=== PATIENT | female | born 1980 | race Caucasian/White ===

== ENCOUNTER 2017-07-12 15:15 | Outpatient (CLI) | payer MEDICAID | END 2017-07-12 15:16 | disposition critical access hospital (66) | LOC: EMS 15:15 | PROVIDERS: ATTEND Surgery | DX: R56.9 Unspecified convulsions (principal) | CPT/HCPCS: A0425; A0429 ==

== ENCOUNTER 2017-07-12 15:33 | Emergency (ER) | payer MEDICAID ==
[2017-07-12 15:38] VITALS: BP 121/74
--- NOTE | 2017-07-12 15:43 | ED Physician Documentation ---
PD HPI SEIZURE - Stated complaint Stated Complaint: SEIZURES - Chief complaint Chief Complaint: Neuro - History obtained from History obtained from: Patient, EMS - History of Present Illness Timing - onset: Other (36-year-old woman new to the area. She says she has almost daily seizures, in 2005 she had an EEG workup per her at [facility] diagnosing non-epileptiform events. She does have bipolar disorder and is maintained on Lamictal. Today she had 1 of her typical seizures although this was poorly described to me and it is unclear if she had any sort of postictal period. 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 She was advised to follow-up with a neurologist since it has been sometime since she has seen one, but given the likelihood of nonepileptic events and the recurrent nature no further workup is necessary today. Departure - Departure Disposition: 01 Home, Self Care Clinical Impression: Psychogenic nonepileptic seizure Condition: Good Record reviewed to determine appropriate education?: Yes Comments: As discussed, based on your description and prior testing, you have nonepileptic seizures. I recommend following up with primary care in a neurologist. Return if worse. Continue to not drive until advised it is safe to do so by a neurologist. Discharge Date/Time: 07/12/17 15:55
== END 2017-07-12 15:55 | disposition home or self-care (01) ==
LOC: ED 15:33
DX: R56.9 Unspecified convulsions (principal)
CPT/HCPCS: 99283

== ENCOUNTER 2017-08-07 20:20 | Outpatient (CLI) | payer MEDICAID | END 2017-08-07 20:21 | disposition critical access hospital (66) | LOC: EMS 20:20 | PROVIDERS: ATTEND Surgery | DX: R56.9 Unspecified convulsions (principal) | CPT/HCPCS: A0425; A0429 ==

== ENCOUNTER 2017-08-07 20:38 | Emergency (ER) | payer MEDICAID ==
--- NOTE | 2017-08-08 00:26 | ED Physician Documentation ---
History of Present Illness - Stated complaint Stated Complaint: SZ - Chief complaint Chief Complaint: Neuro - History obtained from History obtained from: Patient - History of Present Illness Timing: Enter time (21:00), Today Pain level now: 0 - Additonal information Additional information: patient and patients friend describe seizure like activity occurred at approximately 9 PM tonight while patient was sitting playing cards. Patient does not recall event. Patients friend describes head rocking back and forth and eyes rolled back. Event lasted two or three minutes. There is no description consistent with a post ictal state. patient reportedly had immediate turn to baseline level of consciousness, and presents to the emergency department asymptomatic. Patient says she has had similar episodes in the past, and was told by a neurologist that these were nonepilleptiform events. she is not on any medications for seizures; her Lamictall is for treatment of bipolar. Review of Systems Constitutional: reports: Reviewed and negative Eyes: reports: Reviewed and negative Cardiac: reports: Reviewed and negative Respiratory: reports: Reviewed and negative GI: reports: Reviewed and negative : denies: Incontinent Neurologic: reports: Seizure (seizure-like activity), Unresponsive (during the event). 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 : None HEENT: None Psych: Bipolar disorder Musculoskeletal: None Derm: None - Past Surgical History Past Surgical History: Yes /ASPHALT SPREADER OPERATOR: section, Tubal ligation - Present Medications Home Medications: Ambulatory Orders Medication Instructions Recorded Confirmed Fluticasone [Flonase] 1 sprays TRISTON DAILY 08/07/17 08/07/17 Lamotrigine [Lamictal] 200 mg PO BID 08/07/17 08/07/17 Loratadine [Claritin] 10 mg PO DAILY 08/07/17 08/07/17 - Allergies Allergies/Adverse Reactions: Allergies Allergy/AdvReac Type Severity Reaction Status Date / Time Sulfa (Sulfonamide Allergy Hives Verified 08/07/17 20:57 Antibiotics) diazepam [From Valium] AdvReac Nausea Verified 08/07/17 20:57 - Social History Does the pt smoke?: No Smoking Status: Never smoker Does the pt drink ETOH?: No Does the pt have substance abuse?: No - Immunizations Immunizations are current?: Yes PD ED PE NORMAL - Vitals Vital signs reviewed: Yes - General General: Alert and oriented X 3, No acute distress, Well developed/nourished - HEENT HEENT: PERRL, EOMI, Pharynx benign (no tongue bite/echymosis) - Neck Neck: Supple, no meningeal sign - Cardiac Cardiac: RRR, No murmur - Respiratory Respiratory: No respiratory distress, Clear bilaterally - Abdomen Abdomen: Soft, Non tender - Derm Derm: Normal color, Warm and dry - Extremities Extremities: No edema - Neuro Neuro: Alert and oriented X 3, 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 she has an appointment at the end of this month to establish with local primary care physician, and to obtain referral to a new neurologist. Departure - Departure Disposition: 01 Home, Self Care Clinical Impression: Psychogenic nonepileptic seizure Condition: Good Instructions: ED Fainting Unkn Cause Comments: Follow up with your doctor at the end of the month as scheduled. Discharge Date/Time: 08/08/17 00:50
[2017-08-08 00:46] VITALS: BP 121/70
== END 2017-08-08 00:50 | disposition home or self-care (01) ==
LOC: EDUNIT# → ED 20:38
DX: G40.89 Other seizures (principal)
CPT/HCPCS: 99283; 99284

== ENCOUNTER 2018-01-19 08:00 | Outpatient (CLI) | payer MEDICAID ==
[2018-01-19 12:44] LABS: CORTISOL 7.2 ug/dL
[2018-01-19 12:48] LABS: THYROID STIMULATING HORMONE 1.88 uIU/mL (0.34-5.60)
== END 2018-01-19 08:01 | disposition home or self-care (01) ==
LOC: LAB.N 08:00
PROVIDERS: ATTEND Nurse Practitioner Gerontology
DX: R63.5 Abnormal weight gain (principal)
CPT/HCPCS: 36415; 82533; 84443

== ENCOUNTER 2018-02-14 08:59 | Outpatient (CLI) | payer MEDICAID ==
[2018-02-14 14:02] LABS: ALBUMIN 3.8 g/dL (3.2-5.5); ALBUMIN/GLOBULIN RATIO 1.4 (1.0-2.2); ALKALINE PHOSPHATASE 79 IU/L (42-121); ALT ALANINE AMINOTRANSFERASE 18 IU/L (10-60); AST ASPARTATE AMINOTRANSFERASE 21 IU/L (10-42); BILIRUBIN,TOTAL 0.2 mg/dL (0.2-1.0); BUN - BLOOD UREA NITROGEN 16 mg/dL (6-20); CALCIUM 8.8 mg/dL (8.5-10.3); CARBON DIOXIDE - CO2 24 mmol/L (21-32); CHLORIDE 106 mmol/L (101-111); CHOL/HDL RATIO 2.3 (<4.4); CHOLESTEROL 126 mg/dL; CREATININE 0.6 mg/dL (0.4-1.0); GFR - MDRD 112 (>89); GLUCOSE 99 mg/dL (70-100); HDL CHOLESTEROL 54 mg/dL; LDL CHOLESTEROL,CALCULATED 59 mg/dL; LDL/HDL RATIO 1.1 (<4.4); SODIUM 137 mmol/L (135-145); TOTAL PROTEIN 6.5 g/dL (6.7-8.2); VLDL CHOLESTEROL 13 mg/dL
[2018-02-14 14:03] LABS: CRP - C-REACTIVE PROTEIN < 1.0 mg/dL (0-1.0)
[2018-02-14 14:08] LABS: BASOPHILS % (AUTO) 0.5 %; EOSINOPHILS # (AUTO) 0.3 10^3/uL (0.0-0.7); EOSINOPHILS % (AUTO) 6.3 %; HGB - HEMOGLOBIN 10.8 g/dL (12.0-16.0); LYMPHOCYTES # (AUTO) 1.2 10^3/uL (1.5-3.5); LYMPHOCYTES % (AUTO) 23.3 %; MEAN CORPUSCULAR HEMOGLOBIN 22.1 pg (27.0-31.0); MEAN CORPUSCULAR HGB CONC 31.6 g/dL (32.0-36.0); MEAN CORPUSCULAR VOLUME 69.9 fL (81.0-99.0); MEAN PLATELET VOLUME 7.6 fL (7.9-10.8); MONOCYTES # (AUTO) 0.3 10^3/uL (0.0-1.0); MONOCYTES % (AUTO) 5.7 %; NEUTROPHILS # (AUTO) 3.3 10^3/uL (1.5-6.6); NEUTROPHILS % (AUTO) 64.2 %; PLT - PLATELET COUNT 280 10^3/uL (130-450); RED BLOOD COUNT 4.86 10^6/uL (4.20-5.40); WHITE BLOOD COUNT 5.1 x10^3/uL (4.8-10.8)
[2018-02-14 14:50] LABS: PLATELET ESTIMATE, MANUAL NORMAL (130-450,000) (NORMAL); PLATELET MORPHOLOGY NORMAL APPEARANCE (NORMAL)
[2018-02-14 16:18] LABS: RHEUMATOID FACTOR NEGATIVE (Negative)
[2018-02-16 12:16] LABS: ANA SCREEN NEGATIVE (NEGATIVE)
== END 2018-02-14 09:00 | disposition home or self-care (01) ==
LOC: LAB.N 08:59
PROVIDERS: ATTEND Nurse Practitioner Gerontology
DX: Z13.9 Encounter for screening, unspecified (principal); R63.5 Abnormal weight gain
CPT/HCPCS: 36415; 80053; 80061; 83721; 85025; 85651; 86038; 86140; 86430

== ENCOUNTER 2019-06-10 10:59 | Outpatient (CLI) | payer MEDICAID ==
--- NOTE | 2019-06-10 17:08 | Mammography Report ---
Reason: BREAST PAIN, RIGHT, BREAST LUMP Procedure Date: 06/10/2019 Accession Number: [id number] / [id number] Procedure: VIANCA - Diagnostic Dig Bilat CPT Code: FULL RESULT: EXAM: Diagnostic Dig Bilat DATE: 06/10/2019 12:52 PM CLINICAL HISTORY: Breast pain, right breast lump. TECHNIQUE: (B) - Bilateral CC and MLO views were obtained. COMPARISON: None PARENCHYMAL PATTERN: (F) - The breast(s) demonstrate(s) diffuse fatty replacement. FINDINGS: There are no suspicious masses, calcifications, or areas of distortion. IMPRESSION: Negative examination. BI-RADS category 1. RECOMMENDATION: (ANNUAL) - Recommend routine annual screening mammography. BI-RADS CATEGORY: (1) - Negative. STANDARD QUALIFYING STATEMENTS: 1. This examination was not reviewed with the aid of Computer-Aided Detection (CAD). 2. A negative or benign imaging report should not preclude biopsy if clinically suspicious findings are present. 3. Dense breasts may obscure an underlying neoplasm. 4. This examination was reviewed without the aid of 3D breast imaging (tomosynthesis).
== END 2019-06-10 11:00 | disposition home or self-care (01) ==
LOC: DI 10:59
PROVIDERS: ATTEND Nurse Practitioner Gerontology
DX: N64.4 Mastodynia (principal); N63.10 Unspecified lump in the right breast, unspecified quadrant
CPT/HCPCS: 77066

== ENCOUNTER 2020-04-23 16:44 | Outpatient (CLI) | payer MEDICAID | END 2020-04-23 16:45 | disposition critical access hospital (66) | LOC: EMS 16:44 | PROVIDERS: ATTEND Surgery | DX: R07.9 Chest pain, unspecified (principal); R11.0 Nausea | CPT/HCPCS: A0425; A0427; A0999 ==

== ENCOUNTER 2020-04-23 17:00 | Emergency (ER) | payer MEDICAID ==
[2020-04-23 17:35] LABS: BASOPHILS % (AUTO) 0.3 %; EOSINOPHILS # (AUTO) 0.4 10^3/uL (0.0-0.7); EOSINOPHILS % (AUTO) 5.5 %; HGB - HEMOGLOBIN 11.5 g/dL (12.0-16.0); LYMPHOCYTES # (AUTO) 1.4 10^3/uL (1.5-3.5); LYMPHOCYTES % (AUTO) 20.3 %; MEAN CORPUSCULAR HEMOGLOBIN 21.8 pg (27.0-31.0); MEAN CORPUSCULAR HGB CONC 30.6 g/dL (32.0-36.0); MEAN CORPUSCULAR VOLUME 71.2 fL (81.0-99.0); MEAN PLATELET VOLUME 9.7 fL (7.9-10.8); MONOCYTES # (AUTO) 0.5 10^3/uL (0.0-1.0); MONOCYTES % (AUTO) 7.5 %; NEUTROPHILS # (AUTO) 4.7 10^3/uL (1.5-6.6); NEUTROPHILS % (AUTO) 66.3 %; PLT - PLATELET COUNT 146 10^3/uL (130-450); RED BLOOD COUNT 5.28 10^6/uL (4.20-5.40); RED CELL DISTRIBUTION WIDTH 14.3 % (12.0-15.0)
--- NOTE | 2020-04-23 17:44 | XRAY Report ---
PROCEDURE: Chest 1 View X-Ray INDICATIONS: Chest pain TECHNIQUE: One view of the chest was acquired. COMPARISON: None FINDINGS: Surgical changes and devices: None. Lungs and pleura: No pleural effusions or pneumothorax. Lungs are clear. Mediastinum: Mediastinal contours appear normal. Heart size is normal. Bones and chest wall: No suspicious bony lesions. Overlying soft tissues appear unremarkable. IMPRESSION: No acute cardiopulmonary pathology. Reviewed by: Georges Cabrera MD on 04/23/2020 5:42 PM PDT Approved by: Georges Cabrera MD on 04/23/2020 5:42 PM PDT Station ID: [id number]
[2020-04-23 17:51] LABS: ALBUMIN 3.5 g/dL (3.2-5.5); ALBUMIN/GLOBULIN RATIO 1.3 (1.0-2.2); BILIRUBIN,TOTAL 0.2 mg/dL (0.2-1.0); CREATININE 1.4 mg/dL (0.4-1.0); TOTAL PROTEIN 6.3 g/dL (6.7-8.2)
--- NOTE | 2020-04-23 17:58 | ED Physician Documentation ---
History of Present Illness - Stated complaint Stated Complaint: CP - Chief complaint Chief Complaint: Cardiac - History obtained from History obtained from: Patient - Additonal information Additional information: Patient comes emergency department complaining of an episode of 8/10 left-sided chest pain and shortness of breath that happened while she was climbing the stairs today. Patient has a history of asthma and has had episodes of shortness of breath with exertion previously. However, she states she has not had chest pain. Patient states that the pain was sharp and radiated down her left arm with some numbness in her hand. She states that it was worse with deep breaths. Patient states it felt like a jolt and made her jump backwards. She states she had a slight bit of nausea which was very short-lived. Patient states that her called EMS and that when EMS got there, the pain was starting to improve a little. Patient states they gave her a spray of nitro and that the patient experienced almost complete resolution of her pain. She states that she still has a little pain when she takes a deep breath and that her shoulder still hurts. This is made worse by her lifting her left arm in abduction of the shoulder. Patient denies cough or fevers. She has no history of diabetes, hypertension, or elevated cholesterol that she knows of. Patient has no family history of coronary artery disease. 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 Patient is otherwise healthy except for seizure disorder. She states she is on medication for this but does not remember which one it is. Review of Systems Ten Systems: 10 systems reviewed and negative Constitutional: reports: Reviewed and negative Eyes: reports: Reviewed and negative Ears: reports: Reviewed and negative Nose: reports: Reviewed and negative Throat: reports: Reviewed and negative Cardiac: reports: Chest pain / pressure Respiratory: reports: Dyspnea GI: reports: Nausea : reports: Reviewed and negative Skin: reports: Reviewed and negative Musculoskeletal: reports: Reviewed and negative Neurologic: reports: Reviewed and negative Psychiatric: reports: Reviewed and negative Endocrine: reports: Reviewed and negative Immunocompromised: reports: Reviewed and negative PD PAST MEDICAL HISTORY - Past Medical History Cardiovascular: None Respiratory: None Endocrine/Autoimmune: None GI: None 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 : None HEENT: None Psych: Bipolar disorder Musculoskeletal: None Derm: None - Past Surgical History Past Surgical History: 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, Tubal ligation - Present Medications Home Medications: Ambulatory Orders Medication Instructions Recorded Confirmed Fluticasone [Flonase] 1 sprays TRISTON DAILY 08/07/17 08/07/17 Loratadine [Claritin] 10 mg PO DAILY 08/07/17 08/07/17 lamoTRIgine [Lamictal] 200 mg PO BID 08/07/17 08/07/17 - Allergies Allergies/Adverse Reactions: Allergies Allergy/AdvReac Type Severity Reaction Status Date / Time Sulfa (Sulfonamide Allergy Hives Verified 04/23/20 17:12 Antibiotics) diazepam [From Valium] AdvReac Nausea Verified 04/23/20 17:12 - Social History Does the pt smoke?: No Smoking Status: Never smoker Does the pt drink ETOH?: No Does the pt have substance abuse?: No - Immunizations Immunizations are current?: Yes PD ED PE NORMAL - Vitals Vital signs reviewed: Yes - General General: Alert and oriented X 3, No acute distress - HEENT HEENT: Atraumatic, PERRL, EOMI, Moist mucous membranes - Neck Neck: Supple, no meningeal sign - Cardiac Cardiac: RRR, No murmur, Strong equal pulses - Respiratory Respiratory: No respiratory distress, Clear bilaterally - Abdomen Abdomen: Soft, Non tender, Non distended - Derm Derm: Normal color, Warm and dry, No rash - Extremities Extremities: No deformity, No edema, No calf tenderness / cord - Neuro Neuro: Alert and oriented X 3, Other (Grossly normal) - Psych Psych: Normal mood, Normal affect Results - Vitals Vitals: Vital Signs - 24 hr 04/23/20 04/23/20 04/23/20 17:00 19:25 19:31 Temperature 36.9 C Heart Rate 88 87 Respiratory 18 18 Rate Blood Pressure 129/93 H 121/81 H O2 Saturation 100 98 Oxygen O2 Source Room air - EKG (time done) 1705 Rate: Rate (enter#) (85) Rhythm: NSR [place]: Normal Intervals: Normal IA QRS: Normal Ischemia: Normal ST segments. No: T wave inversion Compare to prior EKG: Old EKG unavailable Computer interpretation: Agree with computer - Labs Labs: Laboratory Tests 04/23/20 04/23/20 04/23/20 17:29 17:29 17:29 WBC 7.0 RBC 5.28 Hgb 11.5 L Hct 37.6 MCV 71.2 L MCH 21.8 L MCHC 30.6 L RDW 14.3 Plt Count 146 MPV 9.7 Neut # (Auto) 4.7 Lymph # (Auto) 1.4 L [place] # (Auto) 0.5 Eos # (Auto) 0.4 Baso # (Auto) 0.0 Absolute Nucleated RBC 0.00 Nucleated RBC % 0.0 Sodium 140 Potassium 3.8 Chloride 103 Carbon Dioxide 25 Anion Gap 12.0 BUN 13 Creatinine 1.4 H Estimated GFR (MDRD) 42 L Glucose 108 H Calcium 9.0 Total Bilirubin 0.2 AST 38 ALT 36 Alkaline Phosphatase 115 Troponin I High Sens < 2.3 L Total Protein 6.3 L Albumin 3.5 Globulin 2.8 Albumin/Globulin Ratio 1.3 Lipase 45 04/23/20 18:58 WBC RBC Hgb Hct MCV MCH MCHC RDW Plt Count MPV Neut # (Auto) Lymph # (Auto) [place] # (Auto) Eos # (Auto) Baso # (Auto) Absolute Nucleated RBC Nucleated RBC % Sodium Potassium Chloride Carbon Dioxide Anion Gap BUN Creatinine Estimated GFR (MDRD) Glucose Calcium Total Bilirubin AST ALT Alkaline Phosphatase Troponin I High Sens < 2.3 L Total Protein Albumin Globulin Albumin/Globulin Ratio Lipase - Rads (name of study) CXR Radiology: Final report received, EMP read indepedently, See rad report (neg) PD MEDICAL DECISION MAKING - ED course Complexity details: reviewed old records (The patient was worked up with labs, EKG, and chest x-ray, all of which were unremarkable.), reviewed results, re- evaluated patient, considered differential, d/w patient ED course: Repeat troponin was negative. I have d/w pt that her sx sound mostly musculoskeletal, and she is very low-risk for CAD; however, with the NTG helping the pain, it is very important that she follows up very soon with her PCP for a stress test. Pt states she has a PCP, and will follow up. We have discussed home management of the sx, as well as the usual indications for return. Departure - Departure Disposition: 01 Home, Self Care Clinical Impression: Chest pain Qualifiers: Chest pain type: unspecified Qualified Code(s): R07.9 - Chest pain, unspecified Condition: Stable Instructions: ED Chest Pain Atypical Unkn Cause Comments: Your EKG, basic labs, and 2 sets of cardiac labs look good. At this point, it does not appear you have had a heart attack. As we have discussed, you are very low risk for this. However, it is important that you follow-up with your doctor to discuss having a stress test done to be absolutely sure, since you did feel some relief after the nitroglycerin. The pain that you are feeling when you take a deep breath and when you move your shoulder is most likely musculoskeletal in origin. You may take ibuprofen and/or Tylenol for this. If you develop worsening pain, especially with shortness of breath and nausea, you should return to the emergency department for further evaluation. Otherwise, please follow-up with your primary doctor soon as possible. Discharge Date/Time: 04/23/20 19:56
[2020-04-23 19:32] VITALS: BP 121/81
== END 2020-04-23 19:56 | disposition home or self-care (01) ==
LOC: EDUNIT# → ED 17:00
DX: R07.9 Chest pain, unspecified (principal); J45.909 Unspecified asthma, uncomplicated; Z87.891 Personal history of nicotine dependence
CPT/HCPCS: 36415; 71045; 80053; 83690; 84484; 85025; 93005; 99284

== ENCOUNTER 2020-05-20 07:34 | Outpatient (CLI) | payer MEDICAID ==
--- NOTE | 2020-05-20 10:17 | CARDIAC PROCEDURE NOTE ---
DATE OF SERVICE: 05/20/2020 Physician: Tierra Bishop MD, LOCATED WITHIN [facility] INDICATION: Chest pain. CARDIAC RISK FACTORS 1. Obesity. 2. Unknown cholesterol status. 3. Sedentary lifestyle until 2 months ago. DESCRIPTION OF PROCEDURE: After signing informed consent, patient underwent a Can-protocol treadmill stress test. There was no imaging ordered with this test. RESTING HEART RATE: 71. PEAK HEART RATE: 129 (71% predicted maximum heart rate for age). RESTING BLOOD PRESSURE: 138/80. PEAK BLOOD PRESSURE: 180/80. The patient exercised for 3 minutes and 17 seconds, all in stage 1 of a Can- protocol. She achieved a peak heart rate of 129 (71% PMHR) and 4.6 METS. There was early shortness of breath with wheezing audible therefore not put into Stage 2.. The exercise was stopped due to severe shortness of breath, respiratory rate was greater than 30. Oxygen saturation was 95-98% on room air throughout the test. The patient had no chest pain. RESTING EKG: Normal sinus rhythm, within normal limits. EKG AT PEAK: No new ST segment or T-wave changes. SUMMARY 1. Normal resting EKG. 2. Nondiagnostic stress test due to not achieving target heart rate. 3. Poor exercise tolerance. 4. No imaging was ordered with this test. 5. This patient's cardiac risk based on all the above: Low. cc: Siddharth Miguel MD TD: 05/20/2020 10:08 MTDD
== END 2020-05-20 07:35 | disposition home or self-care (01) ==
LOC: DI 07:34
PROVIDERS: ATTEND Family Medicine
DX: R07.9 Chest pain, unspecified (principal); E66.9 Obesity, unspecified; Z72.3 Lack of physical exercise
CPT/HCPCS: 93016; 93017; 93018

== ENCOUNTER 2020-08-25 08:00 | Outpatient (CLI) | payer MEDICAID ==
[2020-08-25 12:44] LABS: BASOPHILS % (AUTO) 0.5 %; EOSINOPHILS # (AUTO) 0.5 10^3/uL (0.0-0.7); EOSINOPHILS % (AUTO) 7.8 %; HGB - HEMOGLOBIN 11.3 g/dL (12.0-16.0); LYMPHOCYTES # (AUTO) 1.6 10^3/uL (1.5-3.5); LYMPHOCYTES % (AUTO) 27.2 %; MEAN CORPUSCULAR HEMOGLOBIN 21.4 pg (27.0-31.0); MEAN CORPUSCULAR VOLUME 71.5 fL (81.0-99.0); MEAN PLATELET VOLUME 10.1 fL (7.9-10.8); MONOCYTES # (AUTO) 0.4 10^3/uL (0.0-1.0); MONOCYTES % (AUTO) 6.8 %; NEUTROPHILS # (AUTO) 3.3 10^3/uL (1.5-6.6); NEUTROPHILS % (AUTO) 57.4 %; PLT - PLATELET COUNT 324 10^3/uL (130-450); RED BLOOD COUNT 5.27 10^6/uL (4.20-5.40); RED CELL DISTRIBUTION WIDTH 14.6 % (12.0-15.0); WHITE BLOOD COUNT 5.7 x10^3/uL (4.8-10.8)
[2020-08-25 13:03] LABS: ALBUMIN 3.3 g/dL (3.2-5.5); ALKALINE PHOSPHATASE 152 IU/L (42-121); ALT ALANINE AMINOTRANSFERASE 39 IU/L (10-60); AST ASPARTATE AMINOTRANSFERASE 33 IU/L (10-42); BILIRUBIN,TOTAL 0.2 mg/dL (0.2-1.0); BUN - BLOOD UREA NITROGEN 10 mg/dL (6-20); CALCIUM 8.6 mg/dL (8.5-10.3); CARBON DIOXIDE - CO2 23 mmol/L (21-32); CHLORIDE 107 mmol/L (101-111); CHOL/HDL RATIO 2.9 (<4.4); CHOLESTEROL 121 mg/dL; CREATININE 0.7 mg/dL (0.4-1.0); GLUCOSE 129 mg/dL (70-100); HDL CHOLESTEROL 42 mg/dL; LDL CHOLESTEROL,CALCULATED 61 mg/dL; LDL/HDL RATIO 1.5 (<4.4); SODIUM 136 mmol/L (135-145); TOTAL PROTEIN 6.6 g/dL (6.7-8.2); VLDL CHOLESTEROL 18 mg/dL
== END 2020-08-25 23:59 | disposition home or self-care (01) ==
LOC: LAB.WCP 08:00
PROVIDERS: ATTEND Family Medicine
DX: Z00.00 Encounter for general adult medical examination without abnormal findings (principal)
CPT/HCPCS: 36415; 80050; 80061; 83721

== ENCOUNTER 2020-09-03 13:56 | Outpatient (CLI) | payer MEDICAID ==
--- NOTE | 2020-09-03 18:38 | Ultrasound Report ---
PROCEDURE: Pelvic w/Transvaginal INDICATIONS: MENORRHAGIA TECHNIQUE: Real-time scanning was performed of the pelvic organs, with image documentation. Additional endovagi nal scanning was necessary due to incomplete visualization of the adnexal and endometrial structures by transabdominal scanning. COMPARISON: None. FINDINGS: Transabdominal scanning: Limited scanning through the kidneys shows no hydronephrosis. No pathologi c free abdominal or pelvic fluid. Endovaginal scanning: Uterus: Uterus is normal in size at 10.0 x 4.1 x 5.0 cm. Mildly heterogeneous uterine echotexture w ithout focal mass or fibroid. The endometrium measures 9 mm in combined thickness. Nabothian cysts a nd microcalcifications noted in the cervix. Ovaries: Right ovary measures 3.0 x 2.3 x 2.9 cm. Less than 12 follicles seen. Incidental 1.4cm jeb nant follicle. No suspicious adnexal/ovarian mass lesions. The left ovary is not visualized. IMPRESSION: Nonvisualization of the left ovary. Otherwise, negative sonographic evaluation of the pelvis. Reviewed by: Sahil Iqbal MD on 09/03/2020 6:37 PM PST Approved by: Sahil Iqbal MD on 09/03/2020 6:37 PM PST Station ID: [id number]
== END 2020-09-03 13:57 | disposition home or self-care (01) ==
LOC: DI 13:56
PROVIDERS: ATTEND Family Medicine
DX: N92.0 Excessive and frequent menstruation with regular cycle (principal)
CPT/HCPCS: 76830; 76856

== ENCOUNTER 2020-10-27 10:30 | Outpatient (CLI) | payer MEDICAID ==
[2020-10-27 18:54] LABS: BASOPHILS % (AUTO) 0.5 %; EOSINOPHILS # (AUTO) 0.5 10^3/uL (0.0-0.7); EOSINOPHILS % (AUTO) 7.5 %; HGB - HEMOGLOBIN 11.6 g/dL (12.0-16.0); LYMPHOCYTES # (AUTO) 1.3 10^3/uL (1.5-3.5); LYMPHOCYTES % (AUTO) 21.5 %; MEAN CORPUSCULAR HEMOGLOBIN 21.1 pg (27.0-31.0); MEAN CORPUSCULAR HGB CONC 29.5 g/dL (32.0-36.0); MEAN CORPUSCULAR VOLUME 71.6 fL (81.0-99.0); MEAN PLATELET VOLUME 9.9 fL (7.9-10.8); MONOCYTES # (AUTO) 0.4 10^3/uL (0.0-1.0); NEUTROPHILS # (AUTO) 3.9 10^3/uL (1.5-6.6); NEUTROPHILS % (AUTO) 64.2 %; PLT - PLATELET COUNT 343 10^3/uL (130-450); RED BLOOD COUNT 5.49 10^6/uL (4.20-5.40); RED CELL DISTRIBUTION WIDTH 14.5 % (12.0-15.0); WHITE BLOOD COUNT 6.1 x10^3/uL (4.8-10.8)
[2020-10-27 19:07] LABS: % IRON SATURATION 21 % (20-50); BUN - BLOOD UREA NITROGEN 12 mg/dL (6-20); CARBON DIOXIDE - CO2 26 mmol/L (21-32); CHLORIDE 104 mmol/L (101-111); CHOL/HDL RATIO 2.4 (<4.4); CHOLESTEROL 128 mg/dL; CREATININE 0.8 mg/dL (0.4-1.0); GLUCOSE 117 mg/dL (70-100); HDL CHOLESTEROL 53 mg/dL; IRON 66 ug/dL (28-170); LDL CHOLESTEROL,CALCULATED 61 mg/dL; LDL/HDL RATIO 1.2 (<4.4); SODIUM 137 mmol/L (135-145); TOTAL IRON BINDING CAPACITY 314 ug/dL (250-450); TRANSFERRIN 224 mg/dL (192-382); VLDL CHOLESTEROL 14 mg/dL
[2020-10-27 19:09] LABS: CREATININE,URINE 148.1 mg/dL; MICROALBUM/CREATININE RATIO,UR 4.1 ug/mg (<30.0); MICROALBUMIN,URINE 0.6 mg/dL (0-300.0)
[2020-10-27 19:15] LABS: FERRITIN 66.9 ng/mL (11.0-306.8)
[2020-10-27 19:16] LABS: PROLACTIN 12.31 ng/mL
[2020-10-27 19:38] LABS: FOLLICLE STIMULATING HORMONE 7.34 mIU/mL
[2020-10-27 19:39] LABS: LUTEINIZING HORMONE 5.85 mIU/mL
[2020-10-27 20:51] LABS: HEMOGLOBIN A1c% 6.3 % (4.27-6.07)
== END 2020-10-27 23:59 | disposition home or self-care (01) ==
LOC: LAB.WCP 10:30
PROVIDERS: ATTEND Internal Medicine
DX: N92.0 Excessive and frequent menstruation with regular cycle (principal); Z13.220 Encounter for screening for lipoid disorders
CPT/HCPCS: 36415; 80048; 80061; 82043; 82570; 82627; 82728; 83001; 83002; 83036; 83540; 83721; 84146; 84466; 85025

== ENCOUNTER 2021-04-20 08:00 | Outpatient (CLI) | payer MEDICAID ==
[2021-04-20 14:29] LABS: BASOPHILS % (AUTO) 0.5 %; EOSINOPHILS # (AUTO) 0.4 10^3/uL (0.0-0.7); EOSINOPHILS % (AUTO) 5.9 %; HCT - HEMATOCRIT 37.2 % (37.0-47.0); LYMPHOCYTES # (AUTO) 1.6 10^3/uL (1.5-3.5); LYMPHOCYTES % (AUTO) 25.9 %; MEAN CORPUSCULAR HEMOGLOBIN 21.3 pg (27.0-31.0); MEAN CORPUSCULAR HGB CONC 29.6 g/dL (32.0-36.0); MEAN PLATELET VOLUME 10.4 fL (7.9-10.8); MONOCYTES # (AUTO) 0.3 10^3/uL (0.0-1.0); MONOCYTES % (AUTO) 5.6 %; NEUTROPHILS # (AUTO) 3.8 10^3/uL (1.5-6.6); NEUTROPHILS % (AUTO) 61.9 %; PLT - PLATELET COUNT 315 10^3/uL (130-450); RED BLOOD COUNT 5.17 10^6/uL (4.20-5.40); RED CELL DISTRIBUTION WIDTH 14.4 % (12.0-15.0); WHITE BLOOD COUNT 6.1 x10^3/uL (4.8-10.8)
[2021-04-20 15:07] LABS: % IRON SATURATION 24 % (20-50); BUN - BLOOD UREA NITROGEN 16 mg/dL (6-20); CALCIUM 8.9 mg/dL (8.5-10.3); CARBON DIOXIDE - CO2 24 mmol/L (21-32); CHLORIDE 106 mmol/L (101-111); CHOL/HDL RATIO 2.5 (<4.4); CHOLESTEROL 112 mg/dL; CREATININE 0.8 mg/dL (0.4-1.0); GFR - MDRD 79 (>89); GLUCOSE 97 mg/dL (70-100); HDL CHOLESTEROL 45 mg/dL; IRON 66 ug/dL (28-170); LDL CHOLESTEROL,CALCULATED 59 mg/dL; LDL/HDL RATIO 1.3 (<4.4); SODIUM 136 mmol/L (135-145); TOTAL IRON BINDING CAPACITY 270 ug/dL (250-450); TRANSFERRIN 193 mg/dL (192-382); TRIGLYCERIDES 42 mg/dL; VLDL CHOLESTEROL 8 mg/dL
[2021-04-20 20:48] LABS: ESTIMATED AVERAGE GLUCOSE 123 mg/dL (70-100); HEMOGLOBIN A1c% 5.9 % (4.27-6.07)
== END 2021-04-20 23:59 | disposition home or self-care (01) ==
LOC: LAB.WCP 08:00
PROVIDERS: ATTEND Internal Medicine
DX: R73.03 Prediabetes (principal); N92.0 Excessive and frequent menstruation with regular cycle
CPT/HCPCS: 36415; 80048; 80061; 82728; 83036; 83540; 83721; 84466; 85025

== ENCOUNTER 2021-04-29 08:00 | Outpatient (CLI) | payer MEDICAID ==
[2021-04-29 19:30] LABS: BILIRUBIN,URINE NEGATIVE (NEGATIVE); GLUCOSE, URINE (UA) NEGATIVE (NEGATIVE); KETONES,URINE (UA) NEGATIVE (NEGATIVE); LEUKOCYTE ESTERASE, URINE NEGATIVE (NEGATIVE); NITRITE,URINE NEGATIVE (NEGATIVE); OCCULT BLOOD,URINE NEGATIVE (NEGATIVE); PH,URINE 6.5 PH (5.0-7.5); PROTEIN,URINE NEGATIVE (NEGATIVE); UROBILINOGEN,URINE 0.2 (NORMAL) E.U./dL (NORMAL)
[2021-04-29 19:31] LABS: CLARITY,URINE CLEAR (CLEAR)
[2021-04-29 20:00] LABS: BACTERIA,URINE Rare /HPF (None Seen); RBC,URINE 0-5 /HPF (0-5); SQUAMOUS EPITHELIAL CELL,UR FEW Squamous (<= Few)
== END 2021-04-29 23:59 | disposition home or self-care (01) ==
LOC: LAB.WCP 08:00
PROVIDERS: ATTEND Internal Medicine
DX: N39.3 Stress incontinence (female) (male) (principal)
CPT/HCPCS: 81001; 87086

== ENCOUNTER 2021-05-12 13:05 | Outpatient (CLI) | payer MEDICAID ==
--- NOTE | 2021-05-12 15:15 | XRAY Report ---
PROCEDURE: Tib/Fib RT INDICATIONS: R LEG PX TECHNIQUE: 2 views of the tibia and fibula were acquired. COMPARISON: None FINDINGS: Bones: No fractures or dislocations. No suspicious bony lesions. Soft tissues: No suspicious soft tissue calcifications or masses. IMPRESSION: No fracture. No acute osseous lesion. If there are persistent symptoms or continued clinical concern for pathology, then repeat plain film radiographs (7-10 days) or advanced imaging (CT, MR, bone scan) should be considered for further evaluation. Reviewed by: Sarah An MD, PhD on 05/12/2021 3:13 PM PDT Approved by: Sarah An MD, PhD on 05/12/2021 3:13 PM PDT Station ID: [id number]
== END 2021-05-12 23:59 | disposition home or self-care (01) ==
LOC: DI.N 13:05
PROVIDERS: ATTEND Nurse Practitioner
DX: M79.604 Pain in right leg (principal)

== ENCOUNTER 2021-07-23 08:50 | Outpatient (CLI) | payer MEDICAID ==
[2021-07-23 12:21] LABS: CALCIUM 9.3 mg/dL (8.5-10.3); CREATININE 0.8 mg/dL (0.4-1.0); POTASSIUM 3.8 mmol/L (3.5-5.0)
[2021-07-23 12:35] LABS: ESTIMATED AVERAGE GLUCOSE 117 mg/dL (70-100); HEMOGLOBIN A1c% 5.7 % (4.27-6.07)
== END 2021-07-23 23:59 | disposition home or self-care (01) ==
LOC: LAB.WCP 08:50
PROVIDERS: ATTEND Internal Medicine
DX: R73.03 Prediabetes (principal)
CPT/HCPCS: 36415; 80048; 83036

== ENCOUNTER 2021-12-11 10:10 | Outpatient (CLI) | payer MEDICAID ==
[2021-12-11 14:08] LABS: BASOPHILS % (AUTO) 0.8 %; EOSINOPHILS # (AUTO) 0.3 10^3/uL (0.0-0.7); EOSINOPHILS % (AUTO) 6.4 %; HCT - HEMATOCRIT 39.8 % (37.0-47.0); LYMPHOCYTES # (AUTO) 1.6 10^3/uL (1.5-3.5); LYMPHOCYTES % (AUTO) 32.1 %; MEAN CORPUSCULAR HEMOGLOBIN 21.3 pg (27.0-31.0); MEAN CORPUSCULAR HGB CONC 30.2 g/dL (32.0-36.0); MEAN CORPUSCULAR VOLUME 70.6 fL (81.0-99.0); MEAN PLATELET VOLUME 10.4 fL (7.9-10.8); MONOCYTES # (AUTO) 0.3 10^3/uL (0.0-1.0); MONOCYTES % (AUTO) 5.2 %; NEUTROPHILS # (AUTO) 2.8 10^3/uL (1.5-6.6); NEUTROPHILS % (AUTO) 55.3 %; PLT - PLATELET COUNT 296 10^3/uL (130-450); RED BLOOD COUNT 5.64 10^6/uL (4.20-5.40)
[2021-12-11 14:37] LABS: % IRON SATURATION 42 % (20-50); ALBUMIN 4.5 g/dL (3.2-5.5); ALBUMIN/GLOBULIN RATIO 1.5 (1.0-2.2); ALKALINE PHOSPHATASE 93 IU/L (42-121); ALT ALANINE AMINOTRANSFERASE 15 IU/L (10-60); AST ASPARTATE AMINOTRANSFERASE 18 IU/L (10-42); BILIRUBIN,TOTAL 0.9 mg/dL (0.2-1.0); BUN - BLOOD UREA NITROGEN 14 mg/dL (6-20); CALCIUM 9.2 mg/dL (8.5-10.3); CARBON DIOXIDE - CO2 26 mmol/L (21-32); CHLORIDE 102 mmol/L (101-111); CHOLESTEROL 125 mg/dL; CREATININE 0.9 mg/dL (0.4-1.0); GFR - MDRD 69 (>89); GLUCOSE 85 mg/dL (70-100); HDL CHOLESTEROL 62 mg/dL; IRON 121 ug/dL (28-170); LDL CHOLESTEROL,CALCULATED 55 mg/dL; LDL/HDL RATIO 0.9 (<4.4); SODIUM 138 mmol/L (135-145); TOTAL IRON BINDING CAPACITY 288 ug/dL (250-450); TOTAL PROTEIN 7.5 g/dL (6.7-8.2); TRANSFERRIN 206 mg/dL (192-382); TRIGLYCERIDES 40 mg/dL; VLDL CHOLESTEROL 8 mg/dL
[2021-12-11 14:40] LABS: ESTIMATED AVERAGE GLUCOSE 108 mg/dL (70-100); HEMOGLOBIN A1c% 5.4 % (4.27-6.07)
[2021-12-11 14:44] LABS: THYROID STIMULATING HORMONE 0.97 uIU/mL (0.34-5.60)
[2021-12-11 14:50] LABS: FERRITIN 31.7 ng/mL (11.0-306.8)
== END 2021-12-11 10:11 | disposition home or self-care (01) ==
LOC: LAB.N 10:10
PROVIDERS: ATTEND Internal Medicine
DX: R73.03 Prediabetes (principal); D64.9 Anemia, unspecified; F31.60 Bipolar disorder, current episode mixed, unspecified
CPT/HCPCS: 36415; 80050; 80061; 82728; 83036; 83540; 83721; 84466

== ENCOUNTER 2023-02-14 07:50 | Outpatient (CLI) | payer MEDICAID ==
[2023-02-14 11:56] LABS: BASOPHILS % (AUTO) 0.4 %; EOSINOPHILS # (AUTO) 0.4 10^3/uL (0.0-0.7); EOSINOPHILS % (AUTO) 6.4 %; HCT - HEMATOCRIT 40.9 % (37.0-47.0); LYMPHOCYTES # (AUTO) 1.4 10^3/uL (1.5-3.5); LYMPHOCYTES % (AUTO) 24.7 %; MEAN CORPUSCULAR HEMOGLOBIN 21.3 pg (27.0-31.0); MEAN CORPUSCULAR HGB CONC 29.3 g/dL (32.0-36.0); MEAN CORPUSCULAR VOLUME 72.5 fL (81.0-99.0); MEAN PLATELET VOLUME 9.9 fL (7.9-10.8); MONOCYTES # (AUTO) 0.4 10^3/uL (0.0-1.0); MONOCYTES % (AUTO) 6.4 %; NEUTROPHILS # (AUTO) 3.5 10^3/uL (1.5-6.6); NEUTROPHILS % (AUTO) 61.9 %; PLT - PLATELET COUNT 302 10^3/uL (130-450); RED BLOOD COUNT 5.64 10^6/uL (4.20-5.40); RED CELL DISTRIBUTION WIDTH 15.2 % (12.0-15.0); WHITE BLOOD COUNT 5.6 x10^3/uL (4.8-10.8)
[2023-02-14 12:26] LABS: THYROID STIMULATING HORMONE 1.48 uIU/mL (0.34-5.60)
[2023-02-14 12:28] LABS: ESTIMATED AVERAGE GLUCOSE 117 mg/dL (70-100); HEMOGLOBIN A1c% 5.7 % (4.27-6.07)
[2023-02-14 12:30] LABS: FERRITIN 15.4 ng/mL (11.0-306.8)
[2023-02-14 12:33] LABS: ALBUMIN/GLOBULIN RATIO 1.4 (1.0-2.2); ALKALINE PHOSPHATASE 102 IU/L (42-121); ALT ALANINE AMINOTRANSFERASE 17 IU/L (10-60); AST ASPARTATE AMINOTRANSFERASE 17 IU/L (10-42); BILIRUBIN,TOTAL 0.6 mg/dL (0.2-1.0); BUN - BLOOD UREA NITROGEN 9 mg/dL (6-20); CALCIUM 8.8 mg/dL (8.5-10.3); CARBON DIOXIDE - CO2 29 mmol/L (21-32); CHLORIDE 108 mmol/L (101-111); CHOL/HDL RATIO 1.6 (<4.4); CHOLESTEROL 138 mg/dL; CREATININE 0.7 mg/dL (0.4-1.0); GFR - MDRD 92 (>89); GLUCOSE 103 mg/dL (70-100); HDL CHOLESTEROL 84 mg/dL; LDL CHOLESTEROL,CALCULATED 43 mg/dL; LDL/HDL RATIO 0.5 (<4.4); SODIUM 140 mmol/L (135-145); TOTAL PROTEIN 6.8 g/dL (6.7-8.2); TRIGLYCERIDES 55 mg/dL; VLDL CHOLESTEROL 11 mg/dL
== END 2023-02-14 07:51 | disposition home or self-care (01) ==
LOC: LAB.N 07:50
PROVIDERS: ATTEND Physician Assistant Medical
DX: R73.03 Prediabetes (principal); D64.9 Anemia, unspecified; F31.60 Bipolar disorder, current episode mixed, unspecified; Z13.220 Encounter for screening for lipoid disorders
CPT/HCPCS: 36415; 80050; 80061; 82306; 82728; 83036; 83721

== ENCOUNTER 2023-05-23 13:02 | Emergency (ER) | payer MEDICAID ==
[2023-05-23 13:16] VITALS: BP 130/88; O2SAT 100
--- NOTE | 2023-05-23 14:25 | ED Physician Documentation ---
PD HPI SEIZURE - Stated complaint Stated Complaint: SZ - Chief complaint Chief Complaint: Neuro - History obtained from History obtained from: Patient - History of Present Illness Similar symptoms before: Has not had sx before Recently seen: Not recently seen - Additional information Additional information: Patient is a 42-year-old female who presents to the emergency department stating that she has a history of psychogenic seizures. She states that today she had a seizure. She states that it was different because she felt a numbness and burning in the back of her head before the seizure started. It lasted for about 45 seconds. No postictal period. She has been taking all of her medications as prescribed. Nothing makes it better or worse. She states that she feels "off". When asked to describe that further she places her right hand in front of her and states that she feels like she is "here" and then her left hand that she places about 6 inches away and states that she feels like her body is "here." She is unable to describe her symptoms any further. No numbness or tingling. No headache. No neck or back pain. No loss of bowel or bladder control. Nothing makes it better or worse. No vision changes. 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, Frequency HEENT: None Psych: Bipolar disorder Musculoskeletal: None Derm: None - Past Surgical History Past Surgical History: Yes /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: section, Tubal ligation - Present Medications Home Medications: Ambulatory Orders Medication Instructions Recorded Confirmed Loratadine [Claritin] 10 mg PO DAILY 08/07/17 05/21/21 Acetaminophen [Tylenol Extra 1,000 mg PO DAILY 05/21/21 05/21/21 Strength] Albuterol Sulfate [Proair 2 puffs INH Q4HR PRN 05/21/21 05/21/21 Digihaler] Epipen 0.3 mg INJ PRN PRN 05/21/21 Fluticasone/Salmeterol [Advair 1 inh INH BID 05/21/21 05/21/21 100-50 Diskus] Ibuprofen 400 - 600 mg PO Q6HR PRN 05/21/21 05/21/21 Medroxyprogesterone Acetate 10 mg PO DAILY 05/21/21 05/21/21 [Provera] QUEtiapine [SEROquel] 25 mg PO QPM 05/21/21 05/21/21 lamoTRIgine [Lamictal Xr] 250 mg PO DAILY 05/21/21 05/21/21 methocarbamoL [Methocarbamol] 500 mg PO HS 05/21/21 05/21/21 - Allergies Allergies/Adverse Reactions: Allergies Allergy/AdvReac Type Severity Reaction Status Date / Time marijuana (cannabis) Allergy Anaphylaxis Verified 05/23/23 13:05 [marijuana] Sulfa (Sulfonamide Allergy Hives Verified 05/23/23 13:05 Antibiotics) diazepam [From Valium] AdvReac Nausea Verified 05/23/23 13:05 metformin AdvReac Unknown Verified 05/23/23 13:05 - Social History Does the pt smoke?: No Smoking Status: Never smoker Does the pt drink ETOH?: No Does the pt have substance abuse?: No - Immunizations Immunizations are current?: Yes PD ED PE NORMAL - Vitals Vital signs reviewed: Yes - General General: Alert and oriented X 3, No acute distress - HEENT HEENT: Atraumatic, PERRL, EOMI, Ears normal, Moist mucous membranes, Pharynx benign - Neck Neck: Supple, no meningeal sign - Cardiac Cardiac: RRR, Strong equal pulses - Respiratory Respiratory: No respiratory distress, Clear bilaterally - Abdomen Abdomen: Soft, Non tender, Non distended - Back Back: No CVA TTP, No spinal TTP - Derm Derm: Warm and dry - Extremities Extremities: No edema, No calf tenderness / cord - Neuro Neuro: Alert and oriented X 3, 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, No motor deficit, No sensory deficit, Normal speech Eye Opening: Spontaneous Motor: Obeys Commands Verbal: Oriented GCS Score: 15 - Psych Psych: Normal mood, Normal affect Results - Vitals Vitals: Vital Signs - 24 hr 05/23/23 13:05 Temperature 36.5 C Heart Rate 86 Respiratory 16 Rate Blood Pressure 130/88 H O2 Saturation 100 Oxygen O2 Source Room air - Labs Labs: Laboratory Tests 05/23/23 05/23/23 14:28 14:28 WBC 6.2 RBC 5.50 H Hgb 11.7 L Hct 39.0 MCV 70.9 L MCH 21.3 L MCHC 30.0 L RDW 13.9 Plt Count 332 MPV 10.2 Neut # (Auto) 3.5 Lymph # (Auto) 1.8 Bandera # (Auto) 0.5 Eos # (Auto) 0.4 Baso # (Auto) 0.0 Absolute Nucleated RBC 0.00 Nucleated RBC % 0.0 Sodium 136 Potassium 3.8 Chloride 107 Carbon Dioxide 26 Anion Gap 3.0 L BUN 17 Creatinine 0.9 Estimated GFR (MDRD) 69 L Glucose 116 H Calcium 9.2 Total Bilirubin 0.4 AST 13 ALT 14 Alkaline Phosphatase 108 Total Protein 6.5 Albumin 4.0 Globulin 2.5 Albumin/Globulin Ratio 1.6 PD Medical Decision Making - ED course Complexity details: reviewed results, re-evaluated patient, considered differential, d/w patient, d/w family ED course: Patient is status post what appears to be a psychogenic seizure at home today. No significant laboratory abnormalities. Patient is asymptomatic here. She is ambulating without difficulty. Normal cerebellar test. Normal neurological exam. No diplopia. No vision changes. No indication for head CT. We will have her follow-up with her doctor for further care and continue her current medications at home. Patient counseled regarding signs and symptoms for which I believe and urgent re-evaluation would be necessary. Patient with good understanding of and agreement to plan and is comfortable going home at this time This document was made in part using voice recognition software. While efforts are made to proofread this document, sound alike and grammatical errors may occur. Departure - Departure Disposition: 01 Home, Self Care Clinical Impression: Psychogenic nonepileptic seizure Condition: Good Instructions: ED Seizure Recurrent Follow-Up: Félix Eid MD [Primary Care Provider] - Within 1 week Comments: Your laboratory testing does not show any acute abnormality today. Please follow-up with your doctor for further care. Please continue your medications at home as previously prescribed. Forms: PCP List Discharge Date/Time: 05/23/23 15:18
[2023-05-23 14:41] LABS: BASOPHILS % (AUTO) 0.6 %; EOSINOPHILS # (AUTO) 0.4 10^3/uL (0.0-0.7); HGB - HEMOGLOBIN 11.7 g/dL (12.0-16.0); LYMPHOCYTES # (AUTO) 1.8 10^3/uL (1.5-3.5); LYMPHOCYTES % (AUTO) 28.6 %; MEAN CORPUSCULAR HEMOGLOBIN 21.3 pg (27.0-31.0); MEAN CORPUSCULAR VOLUME 70.9 fL (81.0-99.0); MEAN PLATELET VOLUME 10.2 fL (7.9-10.8); MONOCYTES # (AUTO) 0.5 10^3/uL (0.0-1.0); MONOCYTES % (AUTO) 7.3 %; NEUTROPHILS # (AUTO) 3.5 10^3/uL (1.5-6.6); NEUTROPHILS % (AUTO) 56.2 %; PLT - PLATELET COUNT 332 10^3/uL (130-450); RED CELL DISTRIBUTION WIDTH 13.9 % (12.0-15.0); WHITE BLOOD COUNT 6.2 x10^3/uL (4.8-10.8)
[2023-05-23 14:52] LABS: ALBUMIN/GLOBULIN RATIO 1.6 (1.0-2.2); BILIRUBIN,TOTAL 0.4 mg/dL (0.2-1.0); CALCIUM 9.2 mg/dL (8.5-10.3); CREATININE 0.9 mg/dL (0.6-1.3); POTASSIUM 3.8 mmol/L (3.5-4.5); TOTAL PROTEIN 6.5 g/dL (6.4-8.9)
== END 2023-05-23 15:18 | disposition home or self-care (01) ==
LOC: ED 13:02
DX: R56.9 Unspecified convulsions (principal)
CPT/HCPCS: 36415; 80053; 85025; 99283

== ENCOUNTER 2023-07-19 16:50 | Outpatient (CLI) | payer MEDICAID ==
--- NOTE | 2023-07-19 18:24 | MRI Report ---
PROCEDURE: BRAIN WO INDICATIONS: PSEUDOSEIZURES TECHNIQUE: Noncontrast axial T1 spin echo, axial T2 fast spin echo, sagittal and axial FLAIR, coronal T2 fast sp in echo, axial gradient echo, axial diffusion and ADC through the brain. COMPARISON: None. FINDINGS: Image quality: Excellent. CSF Spaces: Basal cisterns are patent. No extra-axial fluid collections. Ventricles are normal in size and shape. Brain: No intracranial masses or hemorrhage. Moncada/white matter interface is normal. Brainstem appe ars normal. Diffusion-weighted images demonstrate no acute ischemic insult. No chronic ischemic ins ults. Normal intravascular flow voids are present. Skull and face: Calvarium has normal marrow signal. Orbits appear normal. Sinuses: Moderate mucosal thickening can be seen within the ethmoid air cells and within the left ma xillary sinus. There is a mucous retention cyst also seen within the left maxillary sinus. Mild mucos al thickening can be seen elsewhere within the paranasal sinuses. IMPRESSION: No significant intracranial abnormality is seen. To the limits of this noncontrast study, no findings of masses or mass effect can be seen. No brain edema or intracranial hemorrhage can be seen. Reviewed by: Asael Reza MD on 07/19/2023 5:23 PM [facility] Approved by: Asael Reza MD on 07/19/2023 5:23 PM ESAU Station ID: [id number]
== END 2023-07-19 16:51 | disposition home or self-care (01) ==
LOC: DI 16:50
PROVIDERS: ATTEND Internal Medicine
DX: F44.5 Conversion disorder with seizures or convulsions (principal)

== ENCOUNTER 2023-07-24 12:39 | Outpatient (CLI) | payer MEDICAID ==
--- NOTE | 2023-07-25 15:49 | Mammography Report ---
BILATERAL DIGITAL SCREENING MAMMOGRAM 3D/2D: 07/24/2023 CLINICAL: Routine screening. Comparison is made to exam dated: 06/10/2019 mammogram - [facility]. Both breasts are almost entirely fatty (category a/<25% glandular tissue). No significant masses, calcifications, or other findings are seen in either breast. There has been no significant interval change. IMPRESSION: NEGATIVE There is no mammographic evidence of malignancy. A 1 year screening mammogram is recommended. Based on the Tyrer Cuzick model (a risk assessment model) the patients lifetime risk is 4.9% and her 10 year risk is 0.7%. According to the ACR, ACS, and NCCN guidelines, an annual breast MRI exam ester g with mammogram is recommended if the patients lifetime risk is 20% or greater. This exam was interpreted at Station ID: [id number]. NOTE: For mammograms, a report in lay terms will be sent to the patient. Approximately 15% of breast malignancies will not be visualized mammographically. In the management of a palpable breast mass, a negative mammogram must not discourage biopsy of a clinically suspicious lesion. Electronically Signed By: Rylie [email or web address]:07/25/2023 09:11:25 letter sent: No_Letter ACR BI-RADS Category 1: Negative 3341F PARENCHYMAL PATTERN: (F) - The breast(s) demonstrate(s) diffuse fatty replacement. BI-RADS CATEGORY: (1) - 1 Mammogram [id number] 1 year screening LATERALITY: (B)
== END 2023-07-24 12:40 | disposition home or self-care (01) ==
LOC: DI.N 12:39
PROVIDERS: ATTEND Internal Medicine
DX: Z12.31 Encounter for screening mammogram for malignant neoplasm of breast (principal)

== ENCOUNTER 2024-04-06 08:29 | Outpatient (CLI) | payer MEDICAID ==
[2024-04-06 09:27] LABS: % IRON SATURATION 26 % (20-50); ALBUMIN 4.1 g/dL (3.2-5.5); ALBUMIN/GLOBULIN RATIO 1.7 (1.0-2.2); ALKALINE PHOSPHATASE 115 IU/L (42-121); ALT ALANINE AMINOTRANSFERASE 14 IU/L (10-60); AST ASPARTATE AMINOTRANSFERASE 14 IU/L (10-42); BILIRUBIN,TOTAL 0.3 mg/dL (0.2-1.0); BUN - BLOOD UREA NITROGEN 12 mg/dL (6-20); CALCIUM 9.1 mg/dL (8.5-10.3); CARBON DIOXIDE - CO2 26 mmol/L (21-32); CHLORIDE 106 mmol/L (101-111); CHOL/HDL RATIO 1.9 (<4.4); CHOLESTEROL 95 mg/dL; CREATININE 0.8 mg/dL (0.6-1.3); GFR - MDRD 78 (>89); GLUCOSE 100 mg/dL (74-104); HDL CHOLESTEROL 50 mg/dL; IRON 76 ug/dL (50-212); LDL CHOLESTEROL,CALCULATED 32 mg/dL; LDL/HDL RATIO 0.6 (<4.4); POTASSIUM 4.1 mmol/L (3.5-4.5); SODIUM 137 mmol/L (135-145); TOTAL IRON BINDING CAPACITY 288 ug/dL (250-450); TOTAL PROTEIN 6.5 g/dL (6.4-8.9); TRANSFERRIN 206 mg/dL (203-362); TRIGLYCERIDES 65 mg/dL (48-352); VLDL CHOLESTEROL 13 mg/dL
[2024-04-06 09:29] LABS: BASOPHILS % (AUTO) 0.4 %; EOSINOPHILS # (AUTO) 0.6 10^3/uL (0.0-0.7); EOSINOPHILS % (AUTO) 7.7 %; HCT - HEMATOCRIT 39.9 % (37.0-47.0); HGB - HEMOGLOBIN 11.9 g/dL (12.0-16.0); LYMPHOCYTES # (AUTO) 1.6 10^3/uL (1.5-3.5); LYMPHOCYTES % (AUTO) 22.4 %; MEAN CORPUSCULAR HEMOGLOBIN 20.8 pg (27.0-31.0); MEAN CORPUSCULAR HGB CONC 29.8 g/dL (32.0-36.0); MEAN CORPUSCULAR VOLUME 69.6 fL (81.0-99.0); MEAN PLATELET VOLUME 9.2 fL (7.9-10.8); MONOCYTES # (AUTO) 0.4 10^3/uL (0.0-1.0); MONOCYTES % (AUTO) 5.5 %; NEUTROPHILS # (AUTO) 4.7 10^3/uL (1.5-6.6); NEUTROPHILS % (AUTO) 63.7 %; PLT - PLATELET COUNT 290 10^3/uL (130-450); RED BLOOD COUNT 5.73 10^6/uL (4.20-5.40); RED CELL DISTRIBUTION WIDTH 14.6 % (12.0-15.0); WHITE BLOOD COUNT 7.3 x10^3/uL (4.8-10.8)
[2024-04-06 10:02] LABS: SLIDE REVIEW? Indicated
[2024-04-06 10:03] LABS: PLATELET ESTIMATE, MANUAL NORMAL (130-450,000) (NORMAL); PLATELET MORPHOLOGY NORMAL APPEARANCE (NORMAL)
[2024-04-06 10:05] LABS: WBC MORPHOLOGY (MULTIPLE) NORMAL APPEARANCE (NORMAL)
[2024-04-06 10:55] LABS: ESTIMATED AVERAGE GLUCOSE 128 mg/dL (70-100); HEMOGLOBIN A1c% 6.1 % (4.27-6.07)
== END 2024-04-06 08:30 | disposition home or self-care (01) ==
LOC: LAB 08:29
PROVIDERS: ATTEND Internal Medicine
DX: G25.81 Restless legs syndrome (principal); F31.60 Bipolar disorder, current episode mixed, unspecified; Z13.220 Encounter for screening for lipoid disorders; R73.03 Prediabetes
CPT/HCPCS: 36415; 80053; 80061; 82728; 83036; 83540; 83721; 84466; 85025